=== PATIENT | female | born 1965 | race Hispanic/Latino ===

== ENCOUNTER 2023-09-13 09:25 | Outpatient (CLI) | payer OTHER ==
[2023-09-13] MEDS ORDERED: Iopamidol 370 76% 100 ML VIAL ONE (13:39)
== END 2023-09-13 09:26 | disposition home or self-care (01) ==
LOC: CT 09:25
PROVIDERS: ATTEND Urology
DX: N28.89 Other specified disorders of kidney and ureter (principal); C64.1 Malignant neoplasm of right kidney, except renal pelvis
CPT/HCPCS: 74178

== ENCOUNTER 2023-10-14 11:00 | Outpatient (CLI) | payer OTHER | END 2023-10-14 11:01 | disposition home or self-care (01) | LOC: BICRAD 11:00 | PROVIDERS: ATTEND Urology | DX: N28.89 Other specified disorders of kidney and ureter (principal); J39.8 Other specified diseases of upper respiratory tract | CPT/HCPCS: 71046 ==